=== PATIENT | female | born 1955 | race Caucasian/White ===

== ENCOUNTER 2017-05-06 11:56 | Emergency (ER) | payer BC ==
[~2017-05-06] VITALS: Ht 157.5 cm; Wt 72.8 kg
[2017-05-06 12:37] LABS: PATH.CAST-FLAG NOT PRESENT; SPERM-FLAG NOT PRESENT; SRC-FLAG NOT PRESENT; XTAL-FLAG NOT PRESENT; YLC-FLAG NOT PRESENT
[2017-05-06 12:54] LABS: ASPARTATE AMINO TRANSFERASE 15 U/L (15-37); BLOOD UREA NITROGEN 18 mg/dL (7-18)
[2017-05-06 14:29] VITALS: BP 128/52
== END 2017-05-06 14:31 | disposition home or self-care (01) ==
LOC: ED 12:56
DX: N30.00 Acute cystitis without hematuria (principal); R10.2 Pelvic and perineal pain; R10.32 Left lower quadrant pain
CPT/HCPCS: 36415; 80053; 81001; 83690; 85025; 87086; 99284